=== PATIENT | female | born 1985 ===

== ENCOUNTER 2019-01-29 08:54 | Emergency (ER) | payer OTHER ==
[~2019-01-29] VITALS: Ht 154.9 cm; Wt 60.3 kg
[~2019-01-29 08:54] MED LIST: OSEL75CA PO
[2019-01-29] MEDS ORDERED: PRENATAL TABLE1 EAC3 (09:03)
== END 2019-01-29 14:25 | disposition home or self-care (01) ==
LOC: ER 08:54
DX: M54.2 Cervicalgia (principal)

== ENCOUNTER 2019-06-09 15:30 | Inpatient (IN) | payer OTHER ==
[~2019-06-09] VITALS: Ht 154.9 cm; Wt 73.5 kg
[~2019-06-09 15:30] MED LIST changes: +PRENATAL TABLE1 EAC3
[2019-07-06] MEDS ORDERED: IRON325 MG PO (10:52)
[2019-07-07] MEDS ORDERED: OBSTETRIX DHA1 EACH PO (14:06)
[2019-07-07] MEDS ORDERED: FUSION PLUS CA1 EACH PO (14:07)
[2019-07-09] MEDS ORDERED: PERCOCET 5-3251 EACH PO (13:13)
[2019-07-09] MEDS ORDERED: SURFAK240 M1 PO (13:13)
[2019-07-09] MEDS ORDERED: IBU800 MG PO (13:13)
== END 2019-07-09 13:20 | disposition home or self-care (01) | DRG 788 ==
LOC: LDR 07-06 07:43 → SURG-SUITE 07-06 07:43 → O/R 07-06 07:43 → SURG-SUITE 07-06 15:43 → LDR 07-08 15:30 → OB/GYN 07-08 15:30 → SURG-SUITE 07-09 13:20
PROVIDERS: ADMIT Specialist
PROC: 3E033VJ Introduction of Other Hormone into Peripheral Vein, Percutaneous Approach (ICD-10-PCS; 2019-07-06)
PROC: 4A1HXFZ Monitoring of Products of Conception, Cardiac Rhythm, External Approach (ICD-10-PCS; 2019-07-06)
PROC: 10D00Z1 Extraction of Products of Conception, Low, Open Approach (ICD-10-PCS; principal; 2019-07-06 15:00)
DX: O62.1 Secondary uterine inertia (principal); Z3A.39 39 weeks gestation of pregnancy; Z37.0 Single live birth